=== PATIENT | female | born 1985 | race Caucasian/White ===

== ENCOUNTER → 2017-06-21 | Outpatient (CLI) | payer OTHER ==
[~2017-06-21] MED LIST: CIPR500T2 PO; PHEN-426 PO; Z.0.NO CURRENT MEDS
== END ==
LOC: HPND 15:00
PROVIDERS: ATTEND Obstetrics & Gynecology
DX: O30.011 Twin pregnancy, monochorionic/monoamniotic, first trimester (principal)
CPT/HCPCS: 76801; 76802; 76817

== ENCOUNTER → 2017-07-28 | Outpatient (CLI) | payer OTHER | LOC: HPND 12:41 | PROVIDERS: ATTEND Obstetrics & Gynecology | DX: O30.011 Twin pregnancy, monochorionic/monoamniotic, first trimester (principal) | CPT/HCPCS: 36415; 76813; 76814 ==

== ENCOUNTER 2017-12-09 15:36 | Emergency (ER) | payer OTHER ==
[2017-12-09] MEDS ORDERED: TERBUTALINE INJ 1 MG/ML AMP ONE (16:07)
[2017-12-09] MEDS: TERBUTALINE INJ 1 MG/ML AMP SQ PRN ×2 (16:18→17:00)
[2017-12-09] MEDS ORDERED: LACTATED RINGER'S 1000 ML INJ 1,000 ML IV ONE (16:30)
[2017-12-09 16:35] LABS: AUTOMATED NEUTROPHIL # 4.2 TH/MM3 (1.8-7.7); BASOPHIL % 0.3 % (0.0-2.0); EOSINOPHIL # 0.2 TH/MM3 (0-0.4); EOSINOPHIL % 2.2 % (0.0-4.0); HEMATOCRIT 32.9 % (35.0-46.0); HEMOGLOBIN 11.1 GM/DL (11.6-15.3); LYMPH % 27.1 % (9.0-44.0); LYMPHOCYTE # 1.9 TH/MM3 (1.0-4.8); MEAN CELL VOLUME 84.7 FL (80.0-100.0); MEAN CORPUSCULAR HEMOGLOBIN 28.6 PG (27.0-34.0); MEAN CORPUSCULAR HGB CONC 33.8 % (32.0-36.0); MEAN PLATELET VOLUME 9.4 FL (7.0-11.0); MONO % 10.4 % (0.0-8.0); MONOCYTE # 0.7 TH/MM3 (0-0.9); PLATELET COUNT 217 TH/MM3 (150-450); RED BLOOD COUNT 3.89 MIL/MM3 (4.00-5.30); RED CELL DISTRIBUTION WIDTH 15.5 % (11.6-17.2); WHITE BLOOD COUNT 7.1 TH/MM3 (4.0-11.0)
[2017-12-09 17:03] LABS: ALBUMIN 2.6 GM/DL (3.4-5.0); ALT (GPT) 17 U/L (10-53); AST (GOT) 17 U/L (15-37); BLOOD UREA NITROGEN 9 MG/DL (7-18); CALCIUM 8.5 MG/DL (8.5-10.1); CHLORIDE 104 MEQ/L (98-107); CREATININE 0.69 MG/DL (0.50-1.00); GLOMERULAR FILTRATION RATE 100 ML/MIN (>89); GLUCOSE,RANDOM 66 MG/DL (74-106); SODIUM (NA) 138 MEQ/L (136-145)
[2017-12-09 17:05] LABS: ALKALINE PHOSPHATASE 124 U/L (45-117); TOTAL BILIRUBIN ADULT 0.2 MG/DL (0.2-1.0); TOTAL PROTEIN 6.9 GM/DL (6.4-8.2)
[2017-12-09] MEDS ORDERED: TERB5 PO (17:40)
--- NOTE | 2017-12-09 17:40 | PD ---
HPI Chief Complaint Contractions 32 week twins Date Seen: Dec 09, 2017 Time Seen: 16:30 Travel History International Travel<30 Days: No Contact w/Intl Traveler<30Days: No Known Affected Area: No History of Present Illness HPI Patient is 32-year-old white female G 1 P0 with twin gestation at [address] Cheema for care presents complaining of contractions. No bleeding or leakage of fluid. Heart rate tracing is reactive and she is anup every 2 minutes. Weeks Gestation: 32 Para: 0 : 1 History Social History Alcohol Use: No Tobacco Use: No Substance Abuse: No Allergies-Medications (Allergen,Severity, Reaction): Coded Allergies: No Known Allergies (Verified Allergy, Unknown, 12/09/17) Home Meds Active Scripts Phenazopyridine Hcl (Pyridium) 100 Mg Tab, 100 MG PO TID, #20 Prov:NICOLAS GILL MD 08/16/11 Ciprofloxacin Hcl (Ciprofloxacin Hcl) 500 Mg Tab, 500 MG PO BID, #6 Prov:NICOLAS GILL MD 08/16/11 Reported Medications Miscellaneous (No Current Meds) Misc, 0 Refills 08/16/11 Review of Systems General / Constitutional: No: Fever, Weight Gain, Chills, Other Eyes: No: Diploplia, Blurred Vision, Visual changes, Pain, Photophobia HENT: No: Headaches, Vertigo, Lightheadedness Cardiovascular: No: Irregular Rhythm, Chest Pain or Discomfort, Palpitations, Tachycardia, Syncope, Varicosities, Edema, Cyanosis Respiratory: No: Cough, Short of Breath, Other Gastrointestinal: No: Nausea, Vomiting, Diarrhea Genitourinary: No: Decreased Urinary Output, Oliguria Musculoskeletal: No: Limited ROM, Weakness, Cramping, Edema, Pain Skin: No Rash, No Itching, No Dryness, No Lumps, No Change in Pigmentation, No Change in Nails, No Alopecia, No Lesions Neurologic: No: Weakness, Dizziness, Syncope, Focal Abnormalities, Coordination Problem, Headache, Slurred Speech, Seizures Psychiatric: No: Depression, Suicidal Ideations, Homicidal Ideation Endocrine: No: Heat Intolerance, Cold Intolerance, Polydipsia, Polyuria, Other Physical Exam Narrative GENERAL: Well-nourished, well-developed patient. SKIN: Warm and dry. HEAD: Normocephalic and atraumatic. EYES: No scleral icterus. No injection or drainage. ENT: No nasal drainage noted. Mucous membranes pink. Airway patent. NECK: Supple, trachea midline. No JVD. CARDIOVASCULAR: Regular rate and rhythm without murmurs, gallops, or rubs. RESPIRATORY: Breath sounds equal bilaterally. No accessory muscle use. BREASTS: Bilateral exam showed no masses , no retractions, no nipple discharge. ABDOMEN/GI: Abdomen soft, non-tender, bowel sounds present, no rebound, no guarding Gravid to [35-] weeks size Fundal Height: [35-]twins GENITOURINARY: External Genitalia: intact and normal in appearance BUS glands: [-] Cervix: [-FT] Dilatation: [FT-] Effacement: [-60] Station: [-3] Presentation: [vtx-] Membranes: [intact ] Uterine Contractions: [initially q 2 min-] FHT's: Category: [-1] Baseline: [-133] Reactive: [-R] Variability: [mod-] Decels: [-none] EXTREMITIES: No cyanosis or edema. BACK: Nontender without obvious deformity. No CVA tenderness. NEUROLOGICAL: Awake and alert. Motor and sensory grossly within normal limits. Five out of 5 muscle strength in all muscle groups. Normal speech. Data Data Orders Orders Terbutaline Inj (Brethine Inj) (12/09/17 16:07) Comprehensive Metabolic Panel (12/09/17 16:08) Complete Blood Count With Diff (12/09/17 16:08) Fibronectin (12/09/17 16:08) Fentanyl Inj (Fentanyl Inj) (12/09/17 16:08) Urinalysis - C+S If Indicated (12/09/17 16:09) Lactated Ringer's 1000 Ml Inj (Lr 1000 M (12/09/17 16:30) Fentanyl Inj (Fentanyl Inj) (12/09/17 16:45) Terbutaline Inj (Brethine Inj) (12/09/17 16:45) Labs FFN negative Laboratory Tests Test 12/09/17 16:01 White Blood Count 7.1 Red Blood Count 3.89 Hemoglobin 11.1 Hematocrit 32.9 Mean Corpuscular Volume 84.7 Mean Corpuscular Hemoglobin 28.6 Mean Corpuscular Hemoglobin Concent 33.8 Red Cell Distribution Width 15.5 Platelet Count 217 Mean Platelet Volume 9.4 Neutrophils (%) (Auto) 60.0 Lymphocytes (%) (Auto) 27.1 Monocytes (%) (Auto) 10.4 Eosinophils (%) (Auto) 2.2 Basophils (%) (Auto) 0.3 Neutrophils # (Auto) 4.2 Lymphocytes # (Auto) 1.9 Monocytes # (Auto) 0.7 Eosinophils # (Auto) 0.2 Basophils # (Auto) 0.0 CBC Comment DIFF FINAL Differential Comment Fibronectin NEGATIVE Blood Urea Nitrogen 9 Creatinine 0.69 Random Glucose 66 Total Protein 6.9 Albumin 2.6 Calcium Level 8.5 Alkaline Phosphatase 124 Aspartate Amino Transf (AST/SGOT) 17 Alanine Aminotransferase (ALT/SGPT) 17 Total Bilirubin 0.2 Sodium Level 138 Potassium Level 4.1 Chloride Level 104 Carbon Dioxide Level 25.0 Anion Gap 9 Estimat Glomerular Filtration Rate 100 MDM Interpretation(s) Patient is 32-year-old white female at 32 weeks with plan this presents with contractions. No bleeding or leakage of fluid. heart tones are reactive for both babies and initially was anup every 2-3 minutes. She fibronectin done which is negative ,.cervix was fingertip/ 60%/ -3, 1 baby vertex , urinalysis negative all lab work in the serum within normal limits ,. Patient was tocolysed with IV fluid, terbutaline, and fentanyl IV. subcutaneous terbutaline seem to work wonderfully and she would give it she will stop anup t, when it would wear off she was anup again. We will repeat applied the terbutaline and she was having anup and was immediately is extremely sensitive to terbutaline and this tocolytic effect Plan Plan to discharge the patient home since fibronectin is negative or contractions. Terbutaline. Plan to give this patient by mouth terbutaline 5 mg every 6 at home since it seems work so well and bedrest as well at home and increase her fluid intake to hydrate Diagnosis Diagnosis: Primary Impression: Twins Additional Impressions: Threatened premature labor in third trimester 32 weeks gestation of Disposition: DISCHARGE HOME Condition: Stable Scripts Terbutaline Sulfate (Terbutaline Sulfate) 5 Mg Tab 5 MG PO Q6H for Asthma Management for 7 Days, #28 TAB 1 Refill Take every 6 hours 3 times/day Prov: Jhoan Bradley II, MD 12/09/17 Jhoan Bradley II, MD Dec 09, 2017 17:40
[2017-12-09 17:52] LABS: BACTERIA, URINE MANY /hpf; BILIRUBIN, URINE NEG (NEG); BLOOD, URINE NEG (NEG); GLUCOSE,URINE NEG (NEG); HYALINE CAST, URINE 1 /lpf (RARE); KETONE, URINE NEG (NEG); MUCUS URINE FEW /lpf (OCC); NITRITE,URINE NEG (NEG); SQUAMOUS EPITHELIAL CELL URINE 3 /hpf (0-5); URINE COLOR YELLOW (YELLW/STRAW); URINE LEUKOCYTE ESTERASE SMALL (NEG)
== END 2017-12-09 19:33 | disposition home or self-care (01) ==
LOC: HOBED 15:36
DX: O47.03 False labor before 37 completed weeks of gestation, third trimester (principal); O30.003 Twin pregnancy, unspecified number of placenta and unspecified number of amniotic sacs, third trimester; R82.99 Other abnormal findings in urine; Z3A.32 32 weeks gestation of pregnancy
CPT/HCPCS: 80053; 81001; 82731; 85025; 87086; 96372; 99284; J3010; J3105; J7120

== ENCOUNTER 2017-12-13 14:40 | Inpatient (IN) | payer OTHER ==
[~2017-12-13] VITALS: Ht 167.6 cm; Wt 78.0 kg
[2017-12-13] VITALS (68 sets, daily range): BP systolic 111–135; BP diastolic 71–86; PULSE 73–107; RESP 18–20; TEMP 98.8
[~2017-12-13 14:40] MED LIST changes: +TERB5 PO
[2017-12-13] MEDS: LACTATED RINGER'S 1000 ML INJ 1,000 ML IV SCH ×3 (15:25→18:09)
--- NOTE | 2017-12-13 15:25 | PD ---
HPI Chief Complaint Contractions Travel History International Travel<30 Days: No Contact w/Intl Traveler<30Days: No Known Affected Area: No History of Present Illness HPI 32-year-old , IUP at 33.0 new care complicated by mono/di twin gestation The patient presented from OB diagnostics with contractions noted on NST, so she was brought for further evaluation. Of note, both biophysical profiles 10 out of 10 and the fetus were vtx/vtx. The patient reports she has been having Rafat Olmos contractions at home but these have been nonpainful and just a sensation of tightening on the top part of her uterus. She was seen and evaluated , 12/09/17 because she was having painful contractions with associated lower back pain. At that time a fibronectin was negative and her vaginal examination was 1/2 cm dilated and 60% effaced. She reports that she was started on terbutaline by mouth every 6 hours but she stopped it yesterday because she was having palpitations and feeling shaky. She reports that in OB diagnostics she was having nonpainful contractions about every 5 minutes but she reports these have now spaced out to about every 10 minutes and are not associated with any pain. There are no aggravating or alleviating factors, no attempted treatments at home except as described. Weeks Gestation: 33 Para: 0 : 1 Miscarriage: 0 : 0 History Past Medical History Medical History: Denies Significant Hx Obstetric History Obstetric History Past Surgical History Narrative Surgical Breast augmentation 2 Family History Narrative Family History Hypertension Social History Alcohol Use: No Tobacco Use: No Substance Abuse: No Allergies-Medications (Allergen,Severity, Reaction): Coded Allergies: Sulfa (Sulfonamide Antibiotics) (Verified Allergy, Mild, Nausea/Vomiting, 12/13/17) nausea and heart palpations No Known Allergies (Verified Allergy, Unknown, 12/09/17) Home Meds Active Scripts Phenazopyridine Hcl (Pyridium) 100 Mg Tab, 100 MG PO TID, #20 Prov:NICOLAS GILL MD 08/16/11 Reported Medications Miscellaneous (No Current Meds) Misc, 0 Refills 08/16/11 Discontinued Scripts Terbutaline Sulfate (Terbutaline Sulfate) 5 Mg Tab, 5 MG PO Q6H for Asthma Management for 7 Days, #28 TAB 1 Refill Take every 6 hours 3 times/day Prov:Jhoan Bradley II, MD 12/09/17 Ciprofloxacin Hcl (Ciprofloxacin Hcl) 500 Mg Tab, 500 MG PO BID, #6 Prov:NICOLAS GILL MD 08/16/11 Review of Systems Except as stated in HPI: all other systems reviewed are Neg Physical Exam Narrative GENERAL: Well-nourished, well-developed patient. SKIN: Warm and dry. HEAD: Normocephalic and atraumatic. EYES: No scleral icterus. No injection or drainage. ENT: No nasal drainage noted. Mucous membranes pink. Airway patent. NECK: Supple, trachea midline. No JVD. CARDIOVASCULAR: Regular rate and rhythm without murmurs, gallops, or rubs. RESPIRATORY: Breath sounds equal bilaterally. No accessory muscle use. BREASTS: Deferred ABDOMEN/GI: Abdomen soft, non-tender, bowel sounds present, no rebound, no guarding Gravid] GENITOURINARY: External Genitalia: intact and normal in appearance. Physiologic discharge. Grossly normal rugae. No cervical or vaginal masses appreciated. fibronectin was obtained which was positive. SVE /-2 with jacket changer observation period to to complete/-1 by same examiner. Uterine Contractions: [-] FHT's: Category: [-] Baseline: [-] Reactive: [-] Variability: [-] Decels: [-] EXTREMITIES: No cyanosis or edema. BACK: Nontender without obvious deformity. NEUROLOGICAL: Awake and alert. Motor and sensory grossly within normal limits. Five out of 5 muscle strength in all muscle groups. Normal speech. Musculoskeletal: Grossly normal range of motion, gait, muscle strength Psychiatric: Grossly normal memory and affect MDM Plan Assessment/plan: 1. IUP at 33.0 2. [place]/Di twins 3. labor: Patient has made cervical change per the same examiner and has a positive fibronectin. She continues to have nonpainful contractions despite an IV fluid bolus. Discussed with Dr. Shaffer, will admit for labor and start magnesium sulfate for tocolysis and betamethasone IM for lung maturity. We'll check rapid GBS, but in the meantime we'll start penicillin G 5 million units now followed by 2.5 million units every 6 hours for GBS prophylaxis. The plan of care was discussed with the patient who is in agreement. 4. Possible UTI: UA with leukocyte esterase and bacteria, will start Macrobid 100 mg by mouth twice a day, await urine culture results 5. well-being: Reassuring testing with BPP 10/10 for both fetuses and reassuring heart rate tracing that is appropriate for gestational age. We'll continue monitoring. 6. In the event delivery is indicated, the patient desires a primary delivery. We discussed risks, benefits, and alternatives to delivery including but not limited to pain, infection, bleeding, injury to other organs like the bladder, bowels, nerves, vessels, injury to the babies, need for repeat operation, need for hysterectomy, need for blood transfusion, wound infection/breakdown, and other possible risks and complications. The patient is aware that she will be managed by her primary physicians but in the event of an emergency the OB hospitalist would act on behalf of her primary OB until that physician is available. She expressed understanding and all of her questions were answered. Kim Dumont MD Dec 13, 2017 15:24
[2017-12-13 16:29] LABS: BACTERIA, URINE MANY /hpf; BILIRUBIN, URINE NEG (NEG); BLOOD, URINE NEG (NEG); GLUCOSE,URINE NEG (NEG); HYALINE CAST, URINE 1 /lpf (RARE); KETONE, URINE NEG (NEG); MUCUS URINE FEW /lpf (OCC); NITRITE,URINE NEG (NEG); PH, URINE 6.5 (5.0-8.5); SQUAMOUS EPITHELIAL CELL URINE 3 /hpf (0-5); URINE COLOR LIGHT-YELLOW (YELLW/STRAW); URINE LEUKOCYTE ESTERASE MOD (NEG)
[2017-12-13] MEDS ORDERED: MAGNESIUM SULFATE 4 GM PREMIX 100 ML ONE (17:40)
[2017-12-13] MEDS ORDERED: MAGNESIUM SULFATE 40 GM PREMIX 1,000 ML IV SCH (17:40)
[2017-12-13] MEDS ORDERED: MAGNESIUM SULFATE 40 GM PREMIX 1,000 ML ONE (17:40)
[2017-12-13] MEDS ORDERED: MAGNESIUM SULFATE 4 GM PREMIX 100 ML IV ONE (17:45)
[2017-12-13] MEDS ORDERED: ONDANSETRON HCL 4 MG/2 ML VIAL IV PUSH PRN (17:45)
[2017-12-13] MEDS ORDERED: ONDANSETRON ODT 4 MG TAB PO PRN (17:45)
[2017-12-13] MEDS ORDERED: ZOLPIDEM TARTRATE 5 MG TAB PO PRN (17:45)
[2017-12-13] MEDS ORDERED: CALCIUM GLUCONATE 10% 1 GM/10 ML VIAL IV PUSH PRN (17:45)
[2017-12-13] MEDS ORDERED: PENICILLIN G POTASSIUM INJ 5,000,000 UNITS in SODIUM CHLORIDE 0.9% INJ 100 ML IV ONE (17:45)
[2017-12-13] MEDS ORDERED: ALUMINUM/MAGNESIUM/SIMETH 30 ML CUP PO PRN (17:45)
[2017-12-13] MEDS ORDERED: SODIUM CHLORIDE 0.9% FLUSH 10 ML FLUSH IV FLUSH PRN ×2 (17:45)
[2017-12-13] MEDS: NITROFURANTOIN MONOHYD MACROCR 100 MG CAP PO SCH (18:10)
[2017-12-13] MEDS: BETAMETHASONE SOD PHOS/ACETATE SUSP 30 MG/5 ML VIAL IM SCH (18:11)
[2017-12-13 18:59] LABS: AUTOMATED NEUTROPHIL # 3.9 TH/MM3 (1.8-7.7); BASOPHIL % 0.5 % (0.0-2.0); EOSINOPHIL # 0.2 TH/MM3 (0-0.4); EOSINOPHIL % 2.6 % (0.0-4.0); HEMATOCRIT 32.6 % (35.0-46.0); HEMOGLOBIN 11.2 GM/DL (11.6-15.3); LYMPH % 25.2 % (9.0-44.0); LYMPHOCYTE # 1.6 TH/MM3 (1.0-4.8); MEAN CORPUSCULAR HEMOGLOBIN 28.5 PG (27.0-34.0); MEAN CORPUSCULAR HGB CONC 34.4 % (32.0-36.0); MEAN PLATELET VOLUME 9.4 FL (7.0-11.0); MONO % 8.8 % (0.0-8.0); MONOCYTE # 0.5 TH/MM3 (0-0.9); NEUT % 62.9 % (16.0-70.0); PLATELET COUNT 222 TH/MM3 (150-450); RED BLOOD COUNT 3.93 MIL/MM3 (4.00-5.30); RED CELL DISTRIBUTION WIDTH 15.3 % (11.6-17.2); WHITE BLOOD COUNT 6.2 TH/MM3 (4.0-11.0)
[2017-12-13] MEDS ORDERED: LIDOCAINE 2% JELLY 30 ML TUBE TOPICAL ONE (19:00)
[2017-12-13] MEDS ORDERED: SODIUM CHLOR 0.9% 1000 ML INJ 1,000 ML IV SCH (19:15)
[2017-12-13] MEDS: PHENAZOPYRIDINE HCL 200 MG TAB PO SCH (20:01)
[2017-12-13] MEDS ORDERED: LIDOCAINE HCL 2% JELLY 5 ML SYRINGE TOPICAL ONE (20:30)
[2017-12-13] MEDS: SODIUM CHLORIDE 0.9% FLUSH 10 ML FLUSH IV FLUSH SCH (20:52)
[2017-12-13] MEDS ORDERED: SODIUM CHLORIDE 0.9% FLUSH 10 ML FLUSH IV FLUSH SCH (21:00)
[2017-12-13] MEDS ORDERED: oxyCODONE/ACETAMINOPHEN 5 MG/325 MG TAB PO PRN (21:15)
[2017-12-13] MEDS: oxyCODONE/ACETAMINOPHEN 5 MG/325 MG TAB PO PRN (21:22)
[2017-12-13] MEDS: PENICILLIN G POTASSIUM INJ 2,500,000 UNITS in SODIUM CHLORIDE 0.9% INJ 100 ML IV SCH (22:04)
[2017-12-14] VITALS (244 sets, daily range): BP systolic 102–127; BP diastolic 55–81; PULSE 86–116; RESP 18; TEMP 97.4–98.7; O2SAT 95–100
[2017-12-14] MEDS: PENICILLIN G POTASSIUM INJ 2,500,000 UNITS in SODIUM CHLORIDE 0.9% INJ 100 ML IV SCH ×6 (02:07→22:09)
[2017-12-14] MEDS: PHENAZOPYRIDINE HCL 200 MG TAB PO SCH ×3 (05:57→22:08)
[2017-12-14] MEDS: oxyCODONE/ACETAMINOPHEN 5 MG/325 MG TAB PO PRN (08:46)
[2017-12-14] MEDS: DOCUSATE SODIUM 100 MG CAP PO SCH (08:47)
[2017-12-14] MEDS: LACTATED RINGER'S 1000 ML INJ 1,000 ML IV SCH (08:48)
[2017-12-14] MEDS: MULTIVIT/MIN/PREN/FOL AC/IRON PRENATAL TAB PO SCH (08:48)
[2017-12-14] MEDS: NITROFURANTOIN MONOHYD MACROCR 100 MG CAP PO SCH ×2 (08:48→18:27)
[2017-12-14] MEDS: MAGNESIUM SULFATE 40 GM PREMIX 1,000 ML IV SCH (08:55)
[2017-12-14] MEDS: SODIUM CHLORIDE 0.9% FLUSH 10 ML FLUSH IV FLUSH SCH ×2 (09:00→22:09)
--- NOTE | 2017-12-14 12:31 | PD.OB.ANTE ---
Subjective Interval History Pt denies feeling ctxs, good movement, still co catheter pain, no SROM, no change discharge, no SOB, no chest pain, slight headache. Objective Vital Signs Vital Signs Date Time Temp Pulse Resp B/P (MAP) Pulse Ox O2 Delivery O2 Flow Rate FiO2 12/14/17 11:35 108 12/14/17 11:30 103 12/14/17 11:15 103 12/14/17 11:10 102 12/14/17 11:05 108 12/14/17 11:00 113 12/14/17 11:00 114 111/68 (82) 12/14/17 10:55 106 12/14/17 10:50 106 12/14/17 10:45 108 12/14/17 10:40 109 12/14/17 10:35 106 12/14/17 10:30 108 12/14/17 10:25 116 12/14/17 10:15 103 12/14/17 10:10 103 12/14/17 10:05 101 12/14/17 10:00 104 123/70 (87) 12/14/17 10:00 98 12/14/17 09:55 102 12/14/17 09:50 100 12/14/17 09:45 102 12/14/17 09:40 99 12/14/17 09:35 106 12/14/17 09:30 104 12/14/17 09:25 104 12/14/17 09:20 108 12/14/17 09:15 106 12/14/17 09:10 102 12/14/17 09:05 109 12/14/17 09:00 109 116/67 (83) 12/14/17 09:00 107 12/14/17 08:55 102 12/14/17 08:50 107 12/14/17 08:45 102 12/14/17 08:40 101 12/14/17 08:35 104 12/14/17 08:30 102 12/14/17 08:25 107 12/14/17 08:20 98 12/14/17 08:15 100 12/14/17 08:10 103 12/14/17 08:05 99 12/14/17 08:00 105 12/14/17 08:00 106 121/73 (89) 12/14/17 07:55 102 12/14/17 07:50 104 12/14/17 07:45 102 12/14/17 07:40 103 12/14/17 07:40 104 100 12/14/17 07:35 101 12/14/17 07:35 101 100 12/14/17 07:30 105 12/14/17 07:30 104 100 12/14/17 07:25 97 12/14/17 07:25 96 100 12/14/17 07:20 101 100 12/14/17 07:20 103 12/14/17 07:15 96 12/14/17 07:15 95 99 12/14/17 07:10 97 100 12/14/17 07:10 97 12/14/17 07:05 104 99 12/14/17 07:05 103 12/14/17 07:00 94 12/14/17 07:00 98 12/14/17 07:00 91 119/72 (88) 99 12/14/17 06:55 96 12/14/17 06:55 98 100 12/14/17 06:50 96 12/14/17 06:50 94 100 12/14/17 06:45 100 12/14/17 06:45 95 12/14/17 06:45 94 12/14/17 06:40 99 12/14/17 06:40 93 12/14/17 06:40 92 12/14/17 06:35 97 12/14/17 06:35 100 12/14/17 06:35 99 12/14/17 06:30 88 12/14/17 06:30 87 12/14/17 06:30 100 12/14/17 06:25 100 12/14/17 06:25 87 12/14/17 06:25 89 12/14/17 06:20 94 12/14/17 06:20 100 12/14/17 06:20 94 12/14/17 06:15 94 12/14/17 06:15 93 12/14/17 06:15 100 12/14/17 06:10 100 12/14/17 06:10 91 12/14/17 06:10 91 12/14/17 06:05 95 12/14/17 06:05 99 12/14/17 06:05 95 12/14/17 06:00 92 12/14/17 06:00 97 12/14/17 06:00 96 115/81 (92) 100 12/14/17 05:55 98 12/14/17 05:55 100 98 12/14/17 05:50 100 99 12/14/17 05:50 104 12/14/17 05:45 91 99 12/14/17 05:45 93 12/14/17 05:40 91 98 12/14/17 05:40 91 12/14/17 05:35 88 100 12/14/17 05:35 87 12/14/17 05:30 101 12/14/17 05:30 102 100 12/14/17 05:25 92 96 12/14/17 05:25 90 12/14/17 05:20 93 97 12/14/17 05:20 94 12/14/17 05:15 107 12/14/17 05:15 109 99 12/14/17 05:10 92 97 12/14/17 05:10 93 12/14/17 05:05 94 97 12/14/17 05:05 95 12/14/17 05:00 92 112/56 (74) 96 12/14/17 05:00 105 12/14/17 05:00 92 12/14/17 04:15 91 98 12/14/17 04:15 92 12/14/17 04:10 90 12/14/17 04:10 90 100 12/14/17 04:05 90 12/14/17 04:05 91 100 12/14/17 04:00 94 116/72 (87) 99 12/14/17 04:00 91 12/14/17 04:00 98.5 12/14/17 04:00 18 12/14/17 04:00 97 18 03:55 93 18 03:55 94 97 18 03:50 91 98 18 03:50 92 18 03:45 93 18 03:45 95 99 18 03:40 93 100 18 03:40 91 18 03:35 107 97 18 03:35 112 18 03:30 100 95 18 03:30 100 18 03:25 98 18 03:25 100 96 12/14/17 03:20 106 96 12/14/17 03:20 108 12/14/17 03:15 93 12/14/17 03:15 93 96 12/14/17 03:10 96 12/14/17 03:10 95 96 12/14/17 03:05 96 12/14/17 03:05 94 96 12/14/17 03:00 110 12/14/17 03:00 107 105/55 (72) 95 12/14/17 03:00 104 12/14/17 02:15 98 99 12/14/17 02:15 95 12/14/17 02:10 88 12/14/17 02:10 98 100 12/14/17 02:05 100 98 12/14/17 02:05 101 12/14/17 02:00 101 119/72 (88) 98 12/14/17 02:00 99 12/14/17 02:00 90 12/14/17 01:40 107 12/14/17 01:40 103 98 12/14/17 01:35 101 12/14/17 01:35 102 98 12/14/17 01:30 98 98 12/14/17 01:30 98 12/14/17 01:25 103 99 12/14/17 01:25 103 12/14/17 01:20 101 12/14/17 01:15 92 12/14/17 01:10 90 12/14/17 01:05 93 12/14/17 01:00 99 106/67 (80) 12/14/17 01:00 111 12/14/17 00:00 98.6 18 12/14/17 00:00 90 121/73 (89) 12/14/17 00:00 92 12/13/17 23:55 96 12/13/17 23:50 87 12/13/17 23:45 94 12/13/17 23:40 97 12/13/17 23:35 83 12/13/17 23:30 94 12/13/17 23:25 87 12/13/17 23:20 97 12/13/17 23:15 100 12/13/17 23:10 90 12/13/17 23:05 90 12/13/17 23:00 82 12/13/17 23:00 86 125/71 (89) 12/13/17 23:00 18 12/13/17 22:45 18 12/13/17 22:00 85 123/73 (90) 12/13/17 22:00 73 12/13/17 21:35 95 12/13/17 21:30 90 12/13/17 21:25 82 12/13/17 21:20 79 12/13/17 21:15 98 12/13/17 21:10 107 12/13/17 21:05 80 12/13/17 21:00 98 12/13/17 21:00 20 12/13/17 21:00 91 126/86 (99) 12/13/17 20:00 77 12/13/17 20:00 77 127/79 (95) 12/13/17 19:30 20 12/13/17 19:25 79 12/13/17 19:20 98.8 12/13/17 19:20 75 12/13/17 19:20 78 12/13/17 19:15 78 12/13/17 19:15 20 12/13/17 19:15 79 12/13/17 19:10 80 12/13/17 19:10 80 12/13/17 19:05 88 12/13/17 19:05 89 12/13/17 19:01 86 135/77 (96) 12/13/17 19:00 90 12/13/17 19:00 96 12/13/17 18:55 88 12/13/17 18:55 88 12/13/17 18:50 97 12/13/17 18:50 92 12/13/17 18:45 87 12/13/17 18:45 86 12/13/17 18:40 87 12/13/17 18:40 87 12/13/17 18:35 91 12/13/17 18:35 87 12/13/17 18:35 88 131/82 (98) 12/13/17 18:30 86 12/13/17 18:30 87 119/82 (94) 12/13/17 18:30 93 12/13/17 18:25 95 122/75 (91) 12/13/17 18:25 97 12/13/17 18:25 105 12/13/17 18:20 98 116/81 (93) 12/13/17 18:20 99 12/13/17 18:20 100 12/13/17 18:15 98 12/13/17 18:15 92 111/76 (88) 12/13/17 18:15 103 12/13/17 18:10 80 12/13/17 18:10 82 12/13/17 18:10 88 12/13/17 18:10 119/79 (92) 12/13/17 18:09 112/77 (89) 12/13/17 18:09 82 12/13/17 18:05 94 12/13/17 18:00 79 12/13/17 17:20 78 12/13/17 17:15 92 12/13/17 17:10 89 12/13/17 17:05 85 12/13/17 17:00 97 12/13/17 16:55 98 12/13/17 16:50 86 12/13/17 16:45 86 12/13/17 16:40 94 12/13/17 16:35 86 12/13/17 16:25 92 12/13/17 16:20 86 12/13/17 16:15 90 12/13/17 16:10 86 12/13/17 16:05 81 12/13/17 16:00 85 12/13/17 15:55 97 12/13/17 15:50 90 12/13/17 15:45 97 12/13/17 15:40 91 12/13/17 15:35 73 12/13/17 15:30 103 12/13/17 15:25 96 12/13/17 15:20 84 12/13/17 15:15 93 Lab & Micro Results Test 12/13/17 15:00 12/13/17 15:16 12/13/17 16:00 12/13/17 17:50 Urine Color LIGHT-YELLOW Urine Turbidity HAZY Urine pH 6.5 Urine Specific [place] 1.009 Urine Protein NEG mg/dL Urine Glucose (UA) NEG mg/dL Urine Ketones NEG mg/dL Urine Occult Blood NEG Urine Nitrite NEG Urine Bilirubin NEG Urine Urobilinogen LESS THAN 2.0 MG/DL Urine Leukocyte Esterase MOD Urine RBC 1 /hpf Urine WBC 2 /hpf Urine Squamous Epithelial Cells 3 /hpf Urine Bacteria MANY /hpf Urine Hyaline Casts 1 /lpf Urine Mucus FEW /lpf Microscopic Urinalysis Comment CULTURE INDICATED Urine Opiates Screen NEG Urine Barbiturates Screen NEG Urine Amphetamines Screen NEG Urine Benzodiazepines Screen NEG Urine Cocaine Screen NEG Urine Cannabinoids Screen NEG Fibronectin POSITIVE White Blood Count 6.2 TH/MM3 Red Blood Count 3.93 MIL/MM3 Hemoglobin 11.2 GM/DL Hematocrit 32.6 % Mean Corpuscular Volume 83.0 FL Mean Corpuscular Hemoglobin 28.5 PG Mean Corpuscular Hemoglobin Concent 34.4 % Red Cell Distribution Width 15.3 % Platelet Count 222 TH/MM3 Mean Platelet Volume 9.4 FL Neutrophils (%) (Auto) 62.9 % Lymphocytes (%) (Auto) 25.2 % Monocytes (%) (Auto) 8.8 % Eosinophils (%) (Auto) 2.6 % Basophils (%) (Auto) 0.5 % Neutrophils # (Auto) 3.9 TH/MM3 Lymphocytes # (Auto) 1.6 TH/MM3 Monocytes # (Auto) 0.5 TH/MM3 Eosinophils # (Auto) 0.2 TH/MM3 Basophils # (Auto) 0.0 TH/MM3 CBC Comment DIFF FINAL Differential Comment Group B Streptococcus (PCR) NEGATIVE Date/Time Source Procedure Growth Status 12/13/17 17:50 Genital Genital Region Group B Streptococcus Screen Pending Received 12/13/17 15:00 Urine Clean Catch Urine Culture Pending Received Physical Exam GENERAL: Well-nourished, well-developed patient. CARDIOVASCULAR: Regular rate and rhythm without murmurs, gallops, or rubs. RESPIRATORY: Breath sounds equal bilaterally. No accessory muscle use. ABDOMEN/GI: Abdomen soft, non-tender. Fundus: [nontender] GENITOURINARY: External Genitalia: intact and normal in appearance Cervix: [deferred-] Dilatation: [-] Effacement: [-] Station: [-] Presentation: [-] Membranes: [-] Uterine Contractions: [ctx q 10-15 min-] FHT's: Category: [-both twins with reactive tracings] Baseline: [-] Reactive: [-] Variability: [-] Decels: [-] EXTREMITIES: No cyanosis or edema, non-tender, without signs of DVT. Assessment and Plan Assessment and Plan Twin gestation at 33wks 1 dy with PTL with slight cervical change, + FFN, ctxs on monitor all responded well to magnesium now stable 1. continue mg until am, then if stable will dc 2. dc arteaga, use bedpan or bedside comode 3. continue abx for possible uti Nupur Saravia MD Dec 14, 2017 12:31
[2017-12-14] MEDS: ACETAMINOPHEN 325 MG TAB PO PRN ×2 (17:15→22:08)
[2017-12-14] MEDS: BETAMETHASONE SOD PHOS/ACETATE SUSP 30 MG/5 ML VIAL IM SCH (18:28)
[2017-12-15] VITALS (89 sets, daily range): BP systolic 109–114; BP diastolic 67–74; PULSE 78–165; RESP 18; TEMP 97.6–98.8
[2017-12-15] MEDS: PENICILLIN G POTASSIUM INJ 2,500,000 UNITS in SODIUM CHLORIDE 0.9% INJ 100 ML IV SCH ×3 (02:24→14:23)
[2017-12-15] MEDS: MAGNESIUM SULFATE 40 GM PREMIX 1,000 ML IV SCH (02:25)
[2017-12-15] MEDS: LACTATED RINGER'S 1000 ML INJ 1,000 ML IV SCH (05:38)
[2017-12-15] MEDS: PHENAZOPYRIDINE HCL 200 MG TAB PO SCH ×2 (06:09→14:23)
[2017-12-15] MEDS: NITROFURANTOIN MONOHYD MACROCR 100 MG CAP PO SCH (08:03)
[2017-12-15] MEDS: DOCUSATE SODIUM 100 MG CAP PO SCH (08:03)
[2017-12-15] MEDS: MULTIVIT/MIN/PREN/FOL AC/IRON PRENATAL TAB PO SCH (08:03)
--- NOTE | 2017-12-15 08:09 | HHI.DS ---
Admission Date Dec 13, 2017 at 17:47 Discharge Date: Dec 15, 2017 Admitting Diagnosis twin gestation at 33 wks with labor Diagnosis: Brief History 32-year-old , IUP at 33.0 new care complicated by mono/di twin gestation The patient presented from OB diagnostics with contractions noted on NST, so she was brought for further evaluation. Of note, both biophysical profiles 10 out of 10 and the fetus were vtx/vtx. The patient reports she has been having Lamar Olmos contractions at home but these have been nonpainful and just a sensation of tightening on the top part of her uterus. She was seen and evaluated , 12/09/17 because she was having painful contractions with associated lower back pain. At that time a fibronectin was negative and her vaginal examination was 1/2 cm dilated and 60% effaced. She reports that she was started on terbutaline by mouth every 6 hours but she stopped it yesterday because she was having palpitations and feeling shaky. She reports that in OB diagnostics she was having nonpainful contractions about every 5 minutes but she reports these have now spaced out to about every 10 minutes and are not associated with any pain. There are no aggravating or alleviating factors, no attempted treatments at home except as described. Hospital Course Pt underwent mag tocolysis with success, steroid administration, abx , with good response, no further cervical change, occ ctx Pt Condition on Discharge: Good Discharge Disposition: Discharge Home Discharge Instructions Diet Instructions: As Tolerated, No Restrictions Activities You Can Perform: Pelvic Rest, Continue Bedrest Activities to Avoid: Concussion Sports, Contact Sports, Lifting/Bending, Prolonged Standing, Strenuous Activity, Sexual Activity Nupur Saravia MD Dec 15, 2017 08:08
[2017-12-15] MEDS ORDERED: INFLUENZA VIRUS VACCINE (QUADRIVALENT) 0.5 ML SYR IM ONE (10:00)
== END 2017-12-15 16:11 | disposition home or self-care (01) | DRG 778 ==
LOC: HOBED 14:40 → H2EA 17:47
PROVIDERS: ADMIT Obstetrics & Gynecology; ATTEND Obstetrics & Gynecology
DX: O60.03 Preterm labor without delivery, third trimester (principal); O30.033 Twin pregnancy, monochorionic/diamniotic, third trimester; Z3A.33 33 weeks gestation of pregnancy
CPT/HCPCS: 59025; 76818; 76820; 80307; 81001; 82731; 85025; 86850; 86900; 86901; 87081; 87086; 87150; 96360; G0481; J0702; J2540; J3475; J7120

== ENCOUNTER 2018-01-07 05:02 | Inpatient (IN) | payer OTHER ==
[~2018-01-07] VITALS: Ht 167.6 cm; Wt 76.0 kg
[2018-01-07] VITALS (16 sets, daily range): BP systolic 126–171; BP diastolic 70–93; PULSE 50–87; RESP 16–18; TEMP 97.8–98.1; O2SAT 96–99
[~2018-01-07 05:02] MED LIST changes: -CIPR500T2 PO; -TERB5 PO
[2018-01-07] MEDS ORDERED: Prenatal Vitamin PO (06:24)
[2018-01-07] MEDS ORDERED: LACTATED RINGER'S 1000 ML IV ONE (06:30)
[2018-01-07] MEDS ORDERED: ceFAZolin 2 GM PREMIX 50 ML IV SCH (06:30)
[2018-01-07] MEDS ORDERED: LACTATED RINGER'S 1000 ML IV SCH (06:30)
[2018-01-07] MEDS ORDERED: CITRIC ACID-SODIUM CITRATE LIQ 30 ML UDC PO SCH (06:30)
[2018-01-07 06:36] LABS: AUTOMATED NEUTROPHIL # 3.4 TH/MM3 (1.8-7.7); BASOPHIL % 0.7 % (0.0-2.0); EOSINOPHIL # 0.1 TH/MM3 (0-0.4); HEMATOCRIT 29.9 % (35.0-46.0); HEMOGLOBIN 10.3 GM/DL (11.6-15.3); LYMPH % 31.5 % (9.0-44.0); LYMPHOCYTE # 1.9 TH/MM3 (1.0-4.8); MEAN CELL VOLUME 80.7 FL (80.0-100.0); MEAN CORPUSCULAR HEMOGLOBIN 27.8 PG (27.0-34.0); MEAN CORPUSCULAR HGB CONC 34.4 % (32.0-36.0); MEAN PLATELET VOLUME 10.3 FL (7.0-11.0); MONO % 10.6 % (0.0-8.0); MONOCYTE # 0.6 TH/MM3 (0-0.9); NEUT % 56.2 % (16.0-70.0); PLATELET COUNT 157 TH/MM3 (150-450); RED CELL DISTRIBUTION WIDTH 16.8 % (11.6-17.2)
[2018-01-07] MEDS ORDERED: MORPHINE SULFATE PF 5 MG/10 ML VIAL ONE (06:45)
[2018-01-07 06:50] LABS: AMORPHOUS SEDIMENT, URINE OCC; BACTERIA, URINE MANY /hpf; BILIRUBIN, URINE NEG (NEG); BLOOD, URINE TRACE (NEG); GLUCOSE,URINE NEG (NEG); KETONE, URINE NEG (NEG); NITRITE,URINE NEG (NEG); PH, URINE 5.5 (5.0-8.5); SQUAMOUS EPITHELIAL CELL URINE 10 /hpf (0-5); URINE COLOR LIGHT-YELLOW (YELLW/STRAW); URINE LEUKOCYTE ESTERASE LARGE (NEG); WHITE BLOOD CELL CLUMPS FEW
[2018-01-07] MEDS ORDERED: oxyCODONE/ACETAMINOPHEN 5 MG/325 MG TAB PO PRN (07:30)
[2018-01-07] MEDS ORDERED: ONDANSETRON HCL 4 MG/2 ML VIAL IV PUSH PRN (07:30)
[2018-01-07] MEDS ORDERED: KETOROLAC TROMETHAMINE 60 MG/2 ML (IM) VIAL IM PRN (07:30)
[2018-01-07] MEDS ORDERED: SIMETHICONE 80 MG CHEWABLE TAB PO PRN (07:30)
[2018-01-07] MEDS ORDERED: SODIUM CHLORIDE 0.9% FLUSH 10 ML FLUSH IV FLUSH PRN (07:30)
[2018-01-07] MEDS ORDERED: EPIDURAL-NALOXONE HCL 0.4 MG/ML AMP IV PUSH PRN (07:35)
[2018-01-07] MEDS ORDERED: EPIDURAL-DIPHENHYDRAMINE HCL 50 MG/ML VIAL IV PUSH PRN (07:35)
[2018-01-07] MEDS ORDERED: EPIDURAL-DIPHENHYDRAMINE HCL 50 MG CAP PO PRN (07:35)
[2018-01-07] MEDS ORDERED: EPIDURAL-NO SYSTEMIC NARCOTICS PRN (07:35)
[2018-01-07] MEDS ORDERED: EPIDURAL-DO NOT ADMINISTER ANTICOAGULANTS PRN (07:35)
[2018-01-07] MEDS ORDERED: OXYTOCIN 30 UNITS-500ML PREMIX 500 ML IV ONE (08:00)
[2018-01-07] MEDS ORDERED: KETOROLAC TROMETHAMINE 30 MG/ML (IVP) VIAL ONE (09:11)
[2018-01-07] MEDS ORDERED: LIDOCAINE 2%/EPINEPHrine PF 1:200,000 20ML SDV OTHER ONE (12:00)
[2018-01-07] MEDS ORDERED: ONDANSETRON HCL 4 MG/2 ML VIAL IV ONE (12:00)
[2018-01-07] MEDS ORDERED: LACTATED RINGER'S 1000 ML INJ 1,000 ML IV ONE (12:00)
[2018-01-07] MEDS ORDERED: DEXAMETHASONE SOD PHOS 4 MG/ML VIAL IV ONE (12:00)
[2018-01-07] MEDS ORDERED: PHENYLEPH/NS 1000 MCG/10 ML SYR IV ONE (12:00)
[2018-01-07] MEDS ORDERED: OXYTOCIN 10 UNIT/ML AMP IV ONE (12:00)
[2018-01-07] MEDS ORDERED: LACTATED RINGER'S 1000 ML INJ 1,000 ML IV SCH (12:30)
[2018-01-07] MEDS ORDERED: OXYTOCIN 30 UNITS-500ML PREMIX 500 ML IV PRN (17:30)
[2018-01-07] MEDS: oxyCODONE/ACETAMINOPHEN 5 MG/325 MG TAB PO PRN (23:43)
[2018-01-08] VITALS: BP 128/77; PULSE 50; RESP 18; TEMP 97.9
[2018-01-08 05:00] VITALS: BP 121/71; PULSE 68; RESP 16; TEMP 98; O2SAT 100
[2018-01-08 06:10] LABS: BASOPHIL % 0.2 % (0.0-2.0); EOSINOPHIL % 0.4 % (0.0-4.0); HEMATOCRIT 24.8 % (35.0-46.0); HEMOGLOBIN 8.4 GM/DL (11.6-15.3); LYMPH % 27.1 % (9.0-44.0); LYMPHOCYTE # 2.5 TH/MM3 (1.0-4.8); MEAN CELL VOLUME 80.6 FL (80.0-100.0); MEAN CORPUSCULAR HEMOGLOBIN 27.5 PG (27.0-34.0); MEAN CORPUSCULAR HGB CONC 34.1 % (32.0-36.0); MEAN PLATELET VOLUME 9.2 FL (7.0-11.0); MONO % 7.8 % (0.0-8.0); MONOCYTE # 0.7 TH/MM3 (0-0.9); NEUT % 64.5 % (16.0-70.0); PLATELET COUNT 146 TH/MM3 (150-450); RED BLOOD COUNT 3.08 MIL/MM3 (4.00-5.30); RED CELL DISTRIBUTION WIDTH 16.6 % (11.6-17.2); WHITE BLOOD COUNT 9.4 TH/MM3 (4.0-11.0)
[2018-01-08 08:00] VITALS: BP 137/84; PULSE 70; RESP 18; TEMP 98.3; O2SAT 95
[2018-01-08] MEDS: FLUCONAZOLE 100 MG TAB PO SCH (09:22)
[2018-01-08] MEDS: oxyCODONE/ACETAMINOPHEN 5 MG/325 MG TAB PO PRN ×3 (09:23→22:27)
[2018-01-08] MEDS: IBUPROFEN 600 MG TAB PO PRN ×3 (09:23→22:27)
--- NOTE | 2018-01-08 11:16 | HHI.OB ---
Subjective Post Operative Day: 1 Remarks Pt s/p primary c/s due to twins doing well, good pain control, tolerating po, good ambulation Objective Vitals/I&O Vital Signs Date Time Temp Pulse Resp B/P (MAP) Pulse Ox O2 Delivery O2 Flow Rate FiO2 01/08/18 08:00 98.3 01/08/18 08:00 70 18 137/84 (101) 95 01/08/18 05:00 98.0 68 16 121/71 (88) 100 01/08/18 00:00 97.9 50 18 128/77 (94) 01/07/18 21:40 98.1 01/07/18 21:40 59 16 126/70 (88) 01/07/18 16:00 98.1 54 18 146/88 (107) 96 01/07/18 12:00 54 151/88 (109) 01/07/18 12:00 16 99 Result Diagram: 01/08/18 0604 Objective Remarks GENERAL: Well-nourished, well-developed patient. CARDIOVASCULAR: Regular rate and rhythm without murmurs, gallops, or rubs. RESPIRATORY: Breath sounds equal bilaterally. No accessory muscle use. ABDOMEN/GI: Abdomen soft, non-tender, bowel sounds present. Incision: Clean, dry and intact. Fundus: Firm, non-tender at umbilicus. GENITOURINARY: Light to moderate bleeding. EXTREMITIES: No cyanosis or edema, non-tender, without signs of DVT. Medications and IVs Current Medications Medications (Trade) Dose Ordered Sig/Brxaton Route Start Time Stop Time Status Last Admin (Bicitra Liq) 30 ml BUSINESS AREA DIRECTOR PO 01/07/18 06:30 01/10/18 06:29 01/07/18 07:20 Oxytocin 500 ml @ 100 mls/hr UNSCH X1 PRN IV 01/07/18 17:30 01/08/18 17:29 (NS Flush) 2 ml BID IV FLUSH 01/07/18 09:00 (NS Flush) 2 ml UNSCH PRN IV FLUSH 01/07/18 07:30 (Mylicon Chew) 80 mg QID PRN PO 01/07/18 07:30 (Motrin) 600 mg Q6H PRN PO 01/07/18 07:30 01/08/18 09:23 (Percocet 5-325 Mg) 1 tab Q4H PRN PO 01/07/18 07:30 01/08/18 09:23 (Percocet 5-325 Mg) 2 tab Q4H PRN PO 01/07/18 07:30 (M-M-R Ii Inj) 0.5 ml ONCE ONCE SQ 01/08/18 16:00 01/08/18 16:01 (Boostrix Inj) 0.5 ml ONCE ONCE IM 01/08/18 16:00 01/08/18 16:01 (Zofran Inj) 4 mg Q6H PRN IV PUSH 01/07/18 07:30 (Diflucan) 150 mg DAILY PO 01/08/18 09:00 01/08/18 09:22 Assessment/Plan Assessment and Plan POD # 1 s/p primary c/s doing well, routine care Nupur Saravia MD Jan 08, 2018 11:15
[2018-01-08] MEDS ORDERED: MEASLES, MUMPS, RUBELLA VACCINE 0.5 ML VIAL SQ ONE (16:00)
[2018-01-08] MEDS ORDERED: DIPHTH/TETANUS/ACEL PERTUSSIS (BOOSTER) 0.5 ML VIAL/PFS IM ONE (16:00)
[2018-01-08 20:10] VITALS: BP 137/80; PULSE 62; RESP 18; TEMP 97.2; O2SAT 96
[2018-01-09] MEDS: oxyCODONE/ACETAMINOPHEN 5 MG/325 MG TAB PO PRN ×2 (04:07→16:22)
[2018-01-09] MEDS: IBUPROFEN 600 MG TAB PO PRN ×3 (04:07→16:23)
[2018-01-09] MEDS: SODIUM CHLORIDE 0.9% FLUSH 10 ML FLUSH IV FLUSH SCH ×2 (09:00→21:00)
[2018-01-09] MEDS: FLUCONAZOLE 100 MG TAB PO SCH (09:28)
--- NOTE | 2018-01-09 09:48 | HHI.OB ---
Subjective Post Operative Day: 2 Remarks Pt doing well Objective Vitals/I&O Vital Signs Date Time Temp Pulse Resp B/P (MAP) Pulse Ox O2 Delivery O2 Flow Rate FiO2 01/08/18 20:10 62 18 137/80 (99) 96 01/08/18 20:10 97.2 Result Diagram: 01/08/18 0604 Objective Remarks GENERAL: Well-nourished, well-developed patient. CARDIOVASCULAR: Regular rate and rhythm without murmurs, gallops, or rubs. RESPIRATORY: Breath sounds equal bilaterally. No accessory muscle use. ABDOMEN/GI: Abdomen soft, non-tender, bowel sounds present. Incision: Clean, dry and intact. Fundus: Firm, non-tender at umbilicus. GENITOURINARY: Light to moderate bleeding. EXTREMITIES: No cyanosis or edema, non-tender, without signs of DVT. 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 PO 01/07/18 06:30 01/10/18 06:29 01/07/18 07:20 (NS Flush) 2 ml BID IV FLUSH 01/07/18 09:00 (NS Flush) 2 ml UNSCH PRN IV FLUSH 01/07/18 07:30 (Mylicon Chew) 80 mg QID PRN PO 01/07/18 07:30 01/09/18 08:15 (Motrin) 600 mg Q6H PRN PO 01/07/18 07:30 01/09/18 09:31 (Percocet 5-325 Mg) 1 tab Q4H PRN PO 01/07/18 07:30 01/09/18 04:07 (Percocet 5-325 Mg) 2 tab Q4H PRN PO 01/07/18 07:30 (Zofran Inj) 4 mg Q6H PRN IV PUSH 01/07/18 07:30 (Diflucan) 150 mg DAILY PO 01/08/18 09:00 01/09/18 09:28 Assessment/Plan Assessment and Plan POD # 2 s/p primary c/s doing well, routine care Nupur Saravia MD Jan 09, 2018 09:47
[2018-01-10] MEDS: oxyCODONE/ACETAMINOPHEN 5 MG/325 MG TAB PO PRN ×3 (03:06→15:16)
[2018-01-10] MEDS: IBUPROFEN 600 MG TAB PO PRN ×3 (03:06→15:15)
[2018-01-10 04:06] VITALS: RESP 17
[2018-01-10] MEDS: FLUCONAZOLE 100 MG TAB PO SCH (09:19)
--- NOTE | 2018-01-10 09:51 | MP ---
cc: TEMO PORRAS M.D. DATE OF SURGERY: 01/07/2018. PREOPERATIVE DIAGNOSIS: A twin gestation at 36 weeks and 4 days for elective primary section POSTOPERATIVE DIAGNOSIS: A twin gestation at 36 weeks and 4 days for elective primary section. OPERATIVE PROCEDURE PERFORMED: Primary low transverse section. SURGEON: Temo Porras MD. ANESTHESIA: Spinal. FINDINGS IN SURGERY: Baby Boy A viable male 5 pounds 7 ounces with Apgars 7 and 9. B Baby male 5 pounds 5 ounces with Apgars 8 and 9. Normal-appearing tubes and ovaries bilaterally. ESTIMATED BLOOD LOSS: 800 cc. COMPLICATIONS: None. DESCRIPTION OF THE PROCEDURE IN DETAIL: After proper consents were obtained, blood and been typed and screened, the patient was taken to the operating room where spinal anesthetic was placed. She was then placed in a dorsal position, sterilely prepped and draped and a Field catheter was placed. At this time using a sharp knife, a Pfannenstiel skin incision was made and this was carried down to the fascia using the Bovie cautery. Fascia was nicked in the midline and extended superolaterally on each side. Blunt dissection of the muscles off of the fascia. Peritoneum was identified, grasped with two hemostats, entered sharply with the Metzenbaum scissors. A bladder blade was placed. Bladder flap was made. Bladder blade was replaced. We made a transverse incision in the lower uterine segment. This incision was extended using the finger fracture technique. Rupture of membranes revealed clear fluid. We had delivery of baby A in vertex position, a male 5 pounds 7 ounces with Apgars of 7 and 9. The cord was clamped x2, cut in-between and was handed to the team in attendance. We then had rupture of baby B's water bag, which revealed clear fluid, vertex presentation, he was delivered easily weighing 5 pounds, 5 ounces with Apgars 8 and 9. The cord was clamped x2 and cut in-between and he was handed to the team in attendance. Cord blood samples were obtained. Placentas were removed. The uterus was exteriorized and wiped clean of clots and debris. The uterine incision was closed with a #1 chromic suture starting at each apex and meeting in midline in a running interlocking fashion. Excellent hemostasis noted. The uterus was placed back into the cavity. Reapproximation of the muscles with a #1 chromic suture. Fascia was closed with a #0 Vicryl starting at each apex and meeting in the midline in a running fashion. Irrigation was performed in the subcu. Hemostasis was achieved with the Bovie cautery. The space was closed with interrupted sutures of 3-0 Vicryl. The skin was closed with sam. All sponge, lap and needle counts were correct x3. MD HENNY Majano/JCC /9:17 AM /9:46 AM
[2018-01-10] MEDS ORDERED: OXYC1TAB63 PO (15:35)
--- NOTE | 2018-01-10 15:35 | HHI.DCPOC ---
Discharge Care Plan Your Health Problems Are: delivery Report Symptoms to Your Doctor -Temperature above 100.5 degrees -Redness, of incision or excessive or foul smelling drainage -Unusual pain or calf pain -Increased vaginal bleeding -Painful or difficulty urinating -Feelings of extreme sadness or anxiety after 2 weeks Goals to Promote Your Health * To prevent worsening of your condition and complications * To maintain your health at the optimal level Directions to Meet Your Goals Take your medications as prescribed Follow your dietary instruction Follow activity as directed Ensure plenty of rest for recovery Drink fluids for hydration Keep your appointments as scheduled Take your immunizations and boosters as scheduled If your symptoms worsen call your PCP, if no PCP go to Urgent Care Center or Emergency Room Smoking is Dangerous to Your Health. Avoid second hand smoke Call the 24-hour crisis hotline for domestic abuse at Nupur Saravia MD Jan 10, 2018 15:35
--- NOTE | 2018-01-10 15:36 | HHI.DS ---
Admission Date Jan 07, 2018 at 05:02 Admitting Diagnosis Diagnosis: : Primary : Male, Multiple Pt Condition on Discharge: Good Discharge Disposition: Discharge Home Discharge Instructions Diet Instructions: As Tolerated, No Restrictions Activities You Can Perform: Pelvic Rest Nupur Saravia MD Jan 10, 2018 15:36
== END 2018-01-10 17:55 | disposition home or self-care (01) | DRG 766 ==
LOC: H2EB 05:02 → H1EA 10:27 → UNDODISIN 01-09 13:09
PROVIDERS: ADMIT Obstetrics & Gynecology; ATTEND Obstetrics & Gynecology
PROC: 10D00Z1 Extraction of Products of Conception, Low, Open Approach (ICD-10-PCS; principal; 2018-01-07)
DX: O30.043 Twin pregnancy, dichorionic/diamniotic, third trimester (principal); Z37.2 Twins, both liveborn; Z3A.36 36 weeks gestation of pregnancy
CPT/HCPCS: 59025; 76818; 76820; 80307; 81001; 85025; 86850; 86900; 86901; 87086; J0690; J1100; J1885; J2274; J2370; J2405; J2590; J7120